=== PATIENT | female | born 1995 | race Caucasian/White ===

== ENCOUNTER 2016-05-01 10:28 | Emergency (ER) | payer BC, MEDICAID ==
[2016-05-01 11:26] VITALS: BP 140/74
--- NOTE | 2016-05-01 14:04 | RAD ---
Indication: Fall, left shoulder pain. 3 views of left shoulder demonstrates mild AC joint separation. No fracture is noted. IMPRESSION: AC joint separation without fracture.
--- NOTE | 2016-05-01 14:05 | RAD ---
Indication: Tenderness at the coccyx. 2 views of the sacrum and coccyx demonstrates no fracture. Sacral foramina are patent undisplaced. IMPRESSION: No fracture of the sacrum or coccyx is noted.
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
== END 2016-05-01 14:50 | disposition home or self-care (01) ==
LOC: UCEAST 10:28
DX: S43.102A Unspecified dislocation of left acromioclavicular joint, initial encounter (principal); S06.0X0A Concussion without loss of consciousness, initial encounter; S40.012A Contusion of left shoulder, initial encounter; W51.XXXA Accidental striking against or bumped into by another person, initial encounter; Y93.9 Activity, unspecified; Y92.9 Unspecified place or not applicable; M53.3 Sacrococcygeal disorders, not elsewhere classified; Z88.1 Allergy status to other antibiotic agents; K82.9 Disease of gallbladder, unspecified
CPT/HCPCS: 72220; 99213; G0463

== ENCOUNTER 2016-12-02 19:45 | Emergency (ER) | payer BC, MEDICAID ==
[2016-12-02 20:07] VITALS: BP 121/70
[2016-12-02] MEDS ORDERED: DOXYcycline CAP(*) 100 MG PO ONE (20:44)
--- NOTE | 2016-12-02 21:00 | UC ---
Bite Injury/Animal HPI - HPI Summary HPI Summary: Patient presents s/p tike bite, she states she believes it was on her less than 24 hours, she removed it and has it with her, it was not engorged. She reports a localized small red area where it was. She denies any fever, chills, joint pain or significant fatigue. - History of Current Complaint Chief Complaint: UCSkin Stated Complaint: TICK BITE Time Seen by Provider: 12/02/16 20:23 Hx Obtained From: Patient Hx Last Menstrual Period: inplanon ?: No Severity Currently: Mild Severity Initially: Mild Onset/Duration: Gradual Onset, Lasting Hours Has Animal Been Immunized?: No Character: Puncture Aggravating Factor(s): Other - palpation Alleviating Factor(s): Nothing Associated Signs And Symptoms: Positive: Negative Animal Available for Observation: Yes Animal Control Notified: No - Risk Factors Infection/Sepsis Risk Factors: Negative - Allergies/Home Medications Allergies/Adverse Reactions: Allergies Allergy/AdvReac Type Severity Reaction Status Date / Time Amoxicillin Allergy Hives Verified 05/16/16 09:40 Home Medications: Home Medications Dicyclomine CAP* [Bentyl CAP*] 10 mg PO TID PRN 12/02/16 [History Confirmed ] Lactobacillus [Probiotic] 1 cap PO 12/02/16 [History] PMH/Surg Hx/FS Hx/Imm Hx Previously Healthy: Yes - Surgical History Surgical History: Yes Surgery Procedure, Year, and Place: ear tube at age 11/10; CHOLECYSTECTOMY 2016 - Family History Known Family History: Positive: Hypertension, Diabetes, Other - gall stones - Social History Occupation: Employed Full-time Lives: Alone Alcohol Use: None Substance Use Type: None Smoking Status (MU): Never Smoked Tobacco Have You Smoked in the Last Year: No - Immunization History Most Recent Influenza Vaccination: 11/26/15 Most Recent Tetanus Shot: 10/30/15 Most Recent Pneumonia Vaccination: never Review of Systems Constitutional: Negative Skin: Negative - right lateral knee 1 cm circular pink ring where the tick was no erythema migrans noted., Other Eyes: Negative ENT: Negative Respiratory: Negative Cardiovascular: Negative Gastrointestinal: Negative Genitourinary: Negative Motor: Negative Neurovascular: Negative Musculoskeletal: Negative Neurological: Negative Psychological: Negative All Other Systems Reviewed And Are Negative: Yes Physical Exam Triage Information Reviewed: Yes Appearance: Well-Appearing Vital Signs: Initial Vital Signs Temp 97.1 F 12/02/16 20:03 Pulse 90 12/02/16 20:03 Resp 18 12/02/16 20:03 BP 121/70 12/02/16 20:03 Pulse Ox 100 12/02/16 20:03 Vital Signs Reviewed: Yes Eye Exam: Normal ENT Exam: Normal Neck exam: Normal Respiratory Exam: Normal Cardiovascular Exam: Normal Abdominal Exam: Normal Musculoskeletal Exam: Normal Skin Exam: Other - right lateral knee, 1 cm circular pink area with light brown puncture site at center. tick inspected no engorged. Bite Injury Course/Dx - Course Course Of Treatment: Patient was treated with doxycycline 200 mg once. I did recommend if she has concerns to have lyme titer in 14-21 days. At the time of discharge she was hemodynamically stable with normal vital signs. - Differential Dx/Diagnosis Differential Diagnosis/HQI/PQRI: Other - tick bite Provider Diagnoses: tick bite Discharge - Discharge Plan Condition: Stable Disposition: HOME Patient Education Materials: Tick Bite (ED) Referrals: No Primary Care Phys,NOPCP [Primary Care Provider] - Additional Instructions: Patient has a tick bite, she believes it was on her less than 72 hours, she has it with her it is no engorged. She does not have erythma migrans. I did treat her prophylaxis with doxycycline. The patient declined lyme titer tonight as she would be reactive as it has only been a few hours, she will follow up in 14-21 days for lyme testing.
== END 2016-12-02 20:56 | disposition home or self-care (01) ==
LOC: UCEAST 19:45
DX: S80.261A Insect bite (nonvenomous), right knee, initial encounter (principal); Z88.1 Allergy status to other antibiotic agents; W57.XXXA Bitten or stung by nonvenomous insect and other nonvenomous arthropods, initial encounter; Y92.9 Unspecified place or not applicable
CPT/HCPCS: 99212; A9270-GY; G0463

== ENCOUNTER 2017-01-22 11:30 | Emergency (ER) | payer BC, MEDICAID ==
[2017-01-22 11:52] VITALS: BP 135/71
--- NOTE | 2017-01-22 13:34 | UC ---
Throat Pain/Nasal Abhinav HPI - HPI Summary HPI Summary: TWO DAYS OF EAR PAIN, HEADACHE, CONGESTION, SORE THROAT, FEVER. - History of Current Complaint Chief Complaint: UCGeneralIllness Stated Complaint: FLU SYMPTOMS Time Seen by Provider: 01/22/17 12:03 Hx Obtained From: Patient Hx Last Menstrual Period: a few weeks ago Onset/Duration: Lasting Days Severity: Moderate Pain Intensity: 5 Pain Scale Used: 0-10 Numeric Associated Signs & Symptoms: Positive: Hoarseness, Sinus Discomfort, Nasal Discharge, Fever - Epiglottits Risk Factors Epiglottis Risk Factors: Negative - Allergies/Home Medications Allergies/Adverse Reactions: Allergies Allergy/AdvReac Type Severity Reaction Status Date / Time Amoxicillin Allergy Hives Verified 01/22/17 11:53 Home Medications: Home Medications Acetaminophen TAB* [Tylenol TAB*] 1,000 mg PO ONCE PRN 01/22/17 [History Confirmed 01/22/17] Ondansetron ODT TAB* [Zofran 4 MG Odt TAB*] 4 mg PO ONCE PRN 01/22/17 [History Confirmed 01/22/17] PMH/Surg Hx/FS Hx/Imm Hx Previously Healthy: Yes - Surgical History Surgical History: Yes Surgery Procedure, Year, and Place: ear tube at age 9; CHOLECYSTECTOMY 2016 - Family History Known Family History: Positive: Hypertension, Diabetes, Other - gall stones - Social History Occupation: Employed Full-time Lives: With Family Alcohol Use: Rare Substance Use Type: None Smoking Status (MU): Never Smoked Tobacco Have You Smoked in the Last Year: No - Immunization History Most Recent Influenza Vaccination: 11/26/15 Most Recent Tetanus Shot: 10/30/15 Most Recent Pneumonia Vaccination: never Review of Systems Constitutional: Fever Skin: Negative Eyes: Negative ENT: Ear Ache, Sinus Congestion, Sinus Pain/Tenderness Respiratory: Negative Cardiovascular: Negative Gastrointestinal: Negative Genitourinary: Negative Motor: Negative Neurovascular: Negative Musculoskeletal: Negative Neurological: Negative Psychological: Negative Is Patient Immunocompromised?: No All Other Systems Reviewed And Are Negative: Yes Physical Exam Triage Information Reviewed: Yes Appearance: Well-Appearing, No Pain Distress, Well-Nourished Vital Signs: Initial Vital Signs Temp 97 F 01/22/17 11:46 Pulse 112 01/22/17 11:46 Resp 18 01/22/17 11:46 BP 135/71 01/22/17 11:46 Pulse Ox 99 01/22/17 11:46 Vital Signs Reviewed: Yes Eye Exam: Normal ENT: Positive: Pharyngeal erythema, TM bulging, TM dull Dental Exam: Normal Neck exam: Normal Neck: Positive: Supple, Nontender, No Lymphadenopathy Respiratory Exam: Normal Respiratory: Positive: Chest non-tender, Lungs clear, Normal breath sounds, No respiratory distress, No accessory muscle use Cardiovascular Exam: Normal Cardiovascular: Positive: RRR, No Murmur, Pulses Normal, Brisk Capillary Refill Abdominal Exam: Normal Abdomen Description: Positive: Nontender, No Organomegaly Musculoskeletal Exam: Normal Neurological Exam: Normal Psychological Exam: Normal Skin Exam: Normal Throat Pain/Nasal Course/Dx - Differential Dx/Diagnosis Provider Diagnoses: SINUSITIS; PHARYNGITIS Discharge - Discharge Plan Condition: Stable Disposition: HOME Prescriptions: DOXYcycline CAP(*) [DOXYcycline 100MG CAP(*)] 100 mg PO BID #20 cap Patient Education Materials: Sinusitis (ED) Referrals: Isaac Horan CAFE COOK [Primary Care Provider] -
== END 2017-01-22 12:45 | disposition home or self-care (01) ==
LOC: UCEAST 11:30
DX: J32.9 Chronic sinusitis, unspecified (principal); J02.9 Acute pharyngitis, unspecified
CPT/HCPCS: 99212; G0463

== ENCOUNTER 2017-08-15 07:17 | Emergency (ER) | payer BC, MEDICAID ==
[2017-08-15 07:33] VITALS: BP 128/80
--- NOTE | 2017-08-15 08:30 | UC ---
Ok Ramos Rebecca, scribed for Anayeli Baxter MD on 08/15/17 at 0757 . General HPI - HPI Summary HPI Summary: Pt is a 22 y/o F who presents to [facility] c/o throat pain since yesterday morning. On triage, pain was moderate ranked 7/10 for which she tried taking Ibuprofen though it was difficult to swallow, and she has not taken anything else. Additionally c/o bilateral ear pain and chills. Denies N/V. Allergy to Amoxicillin caused hives as a child and she has no other known drug allergies. No chance of . - History of Current Complaint Chief Complaint: UCGeneralIllness Stated Complaint: THROAT PAIN Time Seen by Provider: 08/15/17 07:37 Hx Obtained From: Patient Hx Last Menstrual Period: nexplanon implant Onset/Duration: Lasting Days - Since yesterday, Still Present Current Severity: Moderate Pain Intensity: 7 Pain Location at: Throat Character: Ache Aggravating: Swallowing Alleviating: Nothing Associated Signs & Symptoms: Positive: Other - Ear pain, chills. Negative: Nausea, Vomiting - Allergy/Home Medications Allergies/Adverse Reactions: Allergies Allergy/AdvReac Type Severity Reaction Status Date / Time amoxicillin Allergy Hives Verified 08/15/17 07:24 Home Medications: Home Medications Etonogestrel [Nexplanon] 68 mg IMPLANT 08/15/17 [History] PMH/Surg Hx/FS Hx/Imm Hx - Additional Past Medical History Additional PMH: NEGATIVE PMHx: DM, HTN, COPD Respiratory History: Asthma - As a child GI/ History: Other Other GI/ History: IBS - Surgical History Surgical History: Yes Surgery Procedure, Year, and Place: ear tube at age 11/10; CHOLECYSTECTOMY 2016 - Family History Known Family History: Positive: Hypertension, Diabetes, Other - gall stones - Social History Occupation: Employed Full-time - Day care Lives: With Family Alcohol Use: Rare Substance Use Type: None Smoking Status (MU): Never Smoked Tobacco Have You Smoked in the Last Year: No - Immunization History Most Recent Influenza Vaccination: 11/26/15 Most Recent Tetanus Shot: 10/30/15 Most Recent Pneumonia Vaccination: never Review of Systems Constitutional: Chills Skin: Negative Eyes: Negative ENT: Sore Throat, Ear Ache - Bilateral ear pain Respiratory: Negative Cardiovascular: Negative Gastrointestinal: Negative Genitourinary: Negative Motor: Negative Neurovascular: Negative Musculoskeletal: Negative Neurological: Negative Psychological: Negative All Other Systems Reviewed And Are Negative: Yes - Comments Additional Review of Systems Comments: NEGATIVE: Nausea, vomiting Physical Exam Vital Signs: Initial Vital Signs Temp 97.9 F 08/15/17 07:27 Pulse 100 08/15/17 07:27 Resp 16 08/15/17 07:27 BP 128/80 08/15/17 07:27 Pulse Ox 97 08/15/17 07:27 Course/Dx - Course Course Of Treatment: Pt medications reviewed this visit. Discharge - Sign-Out/Discharge Documenting (check all that apply): Discharge/Admit/Transfer - Discharge - Discharge Plan Condition: Stable Disposition: HOME Prescriptions: Acetaminophen ADULT LIQ* [Tylenol ADULT LIQ*] 650 mg PO Q6H PRN #10 udc PRN Reason: pain or fever Cefdinir 250mg/5 ml* [Omnicef 250 mg/5 ml*] 300 mg PO BID #1 btl predniSONE [Deltasone 20 MG TAB] 40 mg PO DAILY #10 tablet Patient Education Materials: Strep Throat (ED) Forms: *Work Release Referrals: Isaac Horan, [employer]PARTMENT SUPERVISOR [Primary Care Provider] - Additional Instructions: - Okay to alternate ibuprofen (Advil, Motrin) 600mg and Tylenol 650mg every 3 hours for pain. Take with food. Do NOT take for more than 4-5 days - Okay to gargle and spit every 4 hours as needed for pain - Take antibiotics as prescribed until gone - Take prednisone as prescribed until gone - Stay well hydrated - frequent sips of cold fluids will be soothing to your throat (popsicles, jello, ice cream, ice water). Avoid excess caffeine until your symptoms have resolved. - Do not share eating, drinking utensils. Throw out your toothbrush when your symptoms resolved -Throat infections are spread by oral secretions - do not share eating or drinking utensils until you symptoms are resolved. Clean items that may get your secretions such as cell phones, ipads, computer mouse, television remotes - Your throat sample has been sent for additional testing. These results will take 1-2 days to come back. If you need antibiotics, we will contact you. You may contact us for your test results on Monday ([phone]) - Contact your doctor to arrange a follow-up appointment as needed - Billing Disposition and Condition Condition: STABLE Disposition: Home The documentation as recorded by the Ok watkins Rebecca accurately reflects the service I personally performed and the decisions made by , Anayeli Baxter MD.
== END 2017-08-15 08:30 | disposition home or self-care (01) ==
LOC: UCEAST 07:17
DX: J02.0 Streptococcal pharyngitis (principal); H92.03 Otalgia, bilateral; J45.909 Unspecified asthma, uncomplicated; K58.9 Irritable bowel syndrome, unspecified; Z88.0 Allergy status to penicillin; Z82.49 Family history of ischemic heart disease and other diseases of the circulatory system; Z83.3 Family history of diabetes mellitus
CPT/HCPCS: 87651; 99212; G0463

== ENCOUNTER 2017-10-05 19:24 | Emergency (ER) | payer BC, MEDICAID ==
[2017-10-05 19:40] VITALS: BP 144/78
--- NOTE | 2017-10-05 19:54 | UC ---
Throat Pain/Nasal Abhinav HPI - HPI Summary HPI Summary: sore throat for 1 week --felt like when she had strep 1 month ago (treated with Zithromax) also has right ear ache and nasal congestion - History of Current Complaint Chief Complaint: UCGeneralIllness Stated Complaint: EAR ACHE AND SORE THROAT Time Seen by Provider: 10/05/17 19:26 Hx Obtained From: Patient Hx Last Menstrual Period: nexplanon ?: No Onset/Duration: Sudden Onset, Lasting Weeks - 1 Pain Intensity: 5 Pain Scale Used: 0-10 Numeric Cough: None - Allergies/Home Medications Allergies/Adverse Reactions: Allergies Allergy/AdvReac Type Severity Reaction Status Date / Time amoxicillin Allergy Hives Verified 08/15/17 07:24 PMH/Surg Hx/FS Hx/Imm Hx Previously Healthy: Yes - Surgical History Surgical History: Yes Surgery Procedure, Year, and Place: ear tube at age 11/10; CHOLECYSTECTOMY 2015 - Family History Known Family History: Positive: Hypertension, Diabetes, Other - gall stones - Social History Occupation: Employed Full-time Lives: With Family Alcohol Use: Rare Substance Use Type: None Smoking Status (MU): Never Smoked Tobacco Have You Smoked in the Last Year: No - Immunization History Most Recent Influenza Vaccination: 11/26/15 Most Recent Tetanus Shot: 10/30/15 Most Recent Pneumonia Vaccination: never Review of Systems Constitutional: Negative Skin: Negative Eyes: Negative ENT: Sore Throat, Ear Ache - right, Sinus Congestion Respiratory: Negative Cardiovascular: Negative Gastrointestinal: Negative Genitourinary: Negative Motor: Negative Neurovascular: Negative Musculoskeletal: Negative Neurological: Negative Psychological: Negative Is Patient Immunocompromised?: No All Other Systems Reviewed And Are Negative: Yes Physical Exam Triage Information Reviewed: Yes Appearance: Well-Appearing, No Pain Distress, Well-Nourished Vital Signs: Initial Vital Signs Temp 97.7 F 10/05/17 19:33 Pulse 82 10/05/17 19:33 Resp 16 10/05/17 19:33 BP 144/78 10/05/17 19:33 Pulse Ox 99 10/05/17 19:33 Vital Signs Reviewed: Yes Eye Exam: Normal Eyes: Positive: Conjunctiva Clear ENT Exam: Normal ENT: Positive: Normal ENT inspection, Hearing grossly normal, Pharyngeal erythema, TMs normal, Tonsillar swelling, Tonsillar exudate, Uvula midline. Negative: Nasal congestion, Trismus, Muffled voice, Hoarse voice, Dental tenderness Dental Exam: Normal Neck exam: Normal Neck: Positive: Supple, Nontender, No Lymphadenopathy Respiratory Exam: Normal Respiratory: Positive: Chest non-tender, Lungs clear, Normal breath sounds, No respiratory distress, No accessory muscle use Cardiovascular Exam: Normal Cardiovascular: Positive: RRR, No Murmur, Pulses Normal, Brisk Capillary Refill Musculoskeletal Exam: Normal Musculoskeletal: Positive: Strength Intact, ROM Intact, No Edema Neurological Exam: Normal Neurological: Positive: Alert, Muscle Tone Normal Psychological Exam: Normal Skin Exam: Normal Diagnostics - Laboratory Diagnostic Studies Completed/Ordered: rst (-) Throat Pain/Nasal Course/Dx - Course Assessment/Plan: increase fluids, tylenol/ibuprofen/ zyrtec sudafed follow blood pressure with pcp - Differential Dx/Diagnosis Provider Diagnoses: elevated bp with dx of hypertension, viral pharyngitis Discharge - Sign-Out/Discharge Documenting (check all that apply): Patient Departure - Discharge Plan Condition: Stable Disposition: HOME Patient Education Materials: Earache (ED), Viral Syndrome (ED), Hypertension ( ED) Referrals: Isaac Horan NP [Primary Care Provider] - 1 Week - Billing Disposition and Condition Condition: STABLE Disposition: Home
== END 2017-10-05 20:15 | disposition home or self-care (01) ==
LOC: UCEAST 19:24
DX: J02.8 Acute pharyngitis due to other specified organisms (principal); H92.01 Otalgia, right ear; R09.81 Nasal congestion; R03.0 Elevated blood-pressure reading, without diagnosis of hypertension; Z88.0 Allergy status to penicillin; Z82.49 Family history of ischemic heart disease and other diseases of the circulatory system; Z83.3 Family history of diabetes mellitus; Z83.79 Family history of other diseases of the digestive system
CPT/HCPCS: 87651; 99211; G0463

== ENCOUNTER 2018-07-10 11:23 | Emergency (ER) | payer BC, MEDICAID ==
--- OUTSIDE RECORDS SUMMARY | 2018-07-10 11:38 | XMS REPORT | Continuity of Care Document ---
:1995 External Reference #:[id number] Author Name John James MD Address [address] [place] [address] Care Team Providers Name Role Phone Aung CHRIS, Isaac Primary Care Physician Unavailable Payers Date Identification Numbers Payment Provider Subscriber Effective: Policy Number: [id number] [facility] Melisa Newman 2018 [place] PayID: [id number] [address] [address] [place] [address] Effective: 2018 Policy Number: [id number] Medicaid/I Melisa Newman Group Name: 1 2 Insurance Primary PayID: [id number] [address] [place] [address] Advance Directives Description No Information Available Problems Active Problems Provider Date Other specified disorders of Eustachian tube, John James MD Onset: 06/14 bilateral Chronic rhinitis John James MD Onset: 06/14/2018 Family History Date Family Member(s) Observation Comments Mother Thyroid Disease Paternal Grandfather Cancer Paternal Grandfather Heart Attack Social History Type Date Description Comments Sex Unknown 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 Cigarette Use Does not smoke cigarettes Cigars Does not smoke cigars Pipe Does not smoke a pipe Smokeless Tobacco Does not use smokeless tobacco Alcohol Rarely drinks alcohol Child Social Hx 6TH Grade Allergies, Adverse Reactions, Alerts Active Allergies Reaction Severity Comments Date Amoxicillin 10/23/2003 Medications Active Medications SIG Qnty Indications Ordering Provider Date No Active Medications Unknown 06/14/2018 History Medications Ciprodex 4 drops to 10ml 380.10 Jamie Pena 12/10/2004 - 0.3%;0.1 % affected ear MD Mike 06/14/2018 Suspension twice daily for 14 days Floxin 4 gtt to left 10units 380.10 Jamie Pena 11/11/2004 - 0.3% Solution ear twice a day MD Mike 12/10/2004 for 14 days Multivitamins W/ Unknown 09/01/2004 - Fluoride 06/14/2018 Chewtabs Immunizations Description No Information Available Vital Signs Date Vital Result Comment 06/14/2018 8:43am Weight 192.00 lb Weight 87.091 kg Height 63.5 inches 5'3.50" Height in cm's 161.3 cm BMI (Body Mass Index) 33.5 kg/m2 11/11/2004 3:12pm BP Systolic 129 mmHg BP Diastolic 65 mmHg Heart Rate 69 /min Respiratory Rate 16 /min Results Description No Information Available Procedures Date Code Description Status 06/14/2018 57441 Tympanometry Completed 06/14/2018 74139 Comprehensive Audiogram Completed 01/31/2005 53519 Interest Income Completed 01/12/2005 79419 Comprehensive Audiogram Completed 12/10/2004 66563 Binocular Microscopy Completed 11/19/2004 43420 Binocular Microscopy Completed 11/11/2004 36305 Binocular Microscopy Completed 03/04/2004 26846 Comprehensive Audiogram Completed 03/04/2004 10726 Pre- Or Post-Op Visit Completed 02/17/2004 97447 Tympanostomy W/Tube, Under General Anes. Completed 02/17/2004 29855 Tympanostomy W/Tube, Under General Anes. Completed 02/04/2004 14891 Tympanometry Completed 01/01/2004 31114 Tympanometry Completed 01/01/2004 90963 Comprehensive Audiogram Completed 10/23/2003 03848 Tympanometry Completed 10/23/2003 42066 Comprehensive Audiogram Completed Encounters Type Date Location Provider Dx Diagnosis Office Visit 06/14/2018 [place] John James J31.0 Chronic rhinitis 8:45a 02/20/07 H69.83 Other specified disorders of Eustachian tube, bilateral Office Visit 01/07/2005 [place],After Jamie Pena 380.10 Otitis Externa 3:15p 02/20/07 MD Mike Acute Office Visit 12/10/2004 [place] Jamie Pena 380.10 Otitis Externa 3:15p 02/20/07 MD Mike Acute Office Visit 11/19/2004 [place] Jamie Pena 380.10 Otitis Externa 3:45p 02/20/07 MD Mike Acute Office Visit 11/11/2004 [place] Jamie Pena 380.10 Otitis Externa 3:15p 02/20/07 MD Mike Acute Office Visit 09/02/2004 [place] Adam Hoffman 381.81 Dysfunction Of 5:00p 02/20/07 John Alejandre Eustachian Tube 478.1 Ulcer Of Nasal Septum Office Visit 02/04/2004 9:30a [place],After 02/20/07 Adam Hoffman 381.4 Otitis MediaHill M.D. 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 Perennial, Allergy 381.4 Otitis Media, Serous Not Specified as Acute Or Chronic Office Visit 10/23/2003 2:00p [place],After 02/20/07 Adam Hoffman 381.4 Otitis [facility] M.D. 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
[2018-07-10 12:19] LABS: ABS Monocytes 0.8 10^3/ul (0-0.8); ABS Neutrophils 4.4 10^3/ul (1.5-7.7); Eosinophil % 0.4 %; Hematocrit 47 % (35-47); Hemoglobin 15.5 g/dL (12.0-16.0); Lymphocyte % 15.9 %; Mean Corpuscular HGB Conc 33 g/dL (31-36); Mean Corpuscular Hemoglobin 29 pg (27-31); Mean Corpuscular Volume 87 fL (80-97); Mean Platelet Volume 8.4 fL (7.4-10.4); Nucleated Red Blood Cells % 0.2; Platelet Count 222 10^3/uL (150-450); Red Blood Count 5.32 10^6 /uL (3.70-4.87); Red Cell Distribution Width 14 % (10.5-15); White Blood Count 6.3 10^3/uL (3.5-10.8)
[2018-07-10 12:50] LABS: ALT 17 U/L (7-52); AST 14 U/L (13-39); Albumin 4.6 g/dL (3.2-5.2); Albumin/Globulin Ratio 1.4 (1-3); Alkaline Phosphatase 64 U/L (34-104); Anion Gap 7 mmol/L (2-11); BUN/Creatinine Ratio 15.3 (8-20); Blood Urea Nitrogen 9 mg/dL (6-24); C Reactive Protein 38.73 mg/L (<8.01); CO2 Carbon Dioxide 26 mmol/L (22-32); Calcium 9.7 mg/dL (8.6-10.3); Chloride 103 mmol/L (101-111); EGFR African American 150.3 (>60); EGFR Non-African American 124.2 (>60); Globulin 3.3 g/dL (2-4); Glucose 80 mg/dL (70-100); Potassium 3.8 mmol/L (3.5-5.0); Sodium 136 mmol/L (135-145); Total Protein 7.9 g/dL (6.4-8.9)
[2018-07-10 12:53] LABS: HCG Pregnancy < 0.60 mIU/mL
--- NOTE | 2018-07-10 12:56 | ED ---
Abdominal Pain/Female - HPI Summary HPI Summary: This patient is a 23 year old F presenting to [facility] accompanied by her mother with a chief complaint of suprapubic abdominal pain since last night 07/09/18. Patient reports the pain is dull and radiates to her back and also reports that whole body is weak. The patient rates the pain 4/10 in severity. She reports fever, diarrhea, and chills last night but denies any symptoms today other than the pain. The patient reports she had a gallbladder removal in 2015 and has a Hx of IBS. The patient has no LNMP due to her control. Symptoms are aggravated by nothing. Symptoms are alleviated by nothing. - History of Current Complaint Chief Complaint: EDAbdPain Stated Complaint: ABD PAIN PER PT Time Seen by Provider: 07/10/18 12:34 Hx Obtained From: Patient Hx Last Menstrual Period: unsure- has nexplanon Onset/Duration: Sudden Onset, Lasting Days - 1, Still Present Timing: Days - 1 Severity Initially: Moderate Severity Currently: Moderate Pain Intensity: 4 Pain Scale Used: 0-10 Numeric Location: Suprapubic Radiates: Yes Radiates to: Back Character: Dull Aggravating Factor(s): Nothing Alleviating Factor(s): Nothing Associated Signs and Symptoms: Positive: Fever, Diarrhea, Other: - Positive: chills, fatigue Allergies/Adverse Reactions: Allergies Allergy/AdvReac Type Severity Reaction Status Date / Time amoxicillin Allergy Hives Verified 07/10/18 12:33 PMH/Surg Hx/FS Hx/Imm Hx Previously Healthy: No Endocrine/Hematology History: Denies: Hx Diabetes, Hx Thyroid Disease Cardiovascular History: Denies: Hx Hypertension, Hx Pacemaker/ICD Respiratory History: Denies: Hx Chronic Obstructive Pulmonary Disease (COPD) Comment Only: Hx Asthma - states as a child GI History: Reports: Hx Gall Bladder Disease Denies: Hx Ulcer Sensory History: Reports: Hx Contacts or Glasses Denies: Hx Hearing Aid Opthamlomology History: Reports: Hx Contacts or Glasses Psychiatric History: Denies: Hx Panic Disorder - Surgical History Surgery Procedure, Year, and Place: ear tube at age 11/10; CHOLECYSTECTOMY 2016 Infectious Disease History: No Infectious Disease History: Denies: Hx Clostridium Difficile, Hx Hepatitis, Hx Human Immunodeficiency Virus (HIV), Hx of Known/Suspected MRSA, Hx Shingles, Hx Tuberculosis, Hx Known/ Suspected VRE, Hx Known/Suspected VRSA, History Other Infectious Disease, Traveled Outside the [place] in Last 30 Days - Family History Known Family History: Positive: Hypertension, Diabetes, Other - gall stones - Social History Alcohol Use: None Hx Substance Use: No Substance Use Type: Reports: None Hx Tobacco Use: No Smoking Status (MU): Never Smoked Tobacco Have You Smoked in the Last Year: No Review of Systems Positive: Fever, Chills, Fatigue Positive: Abdominal Pain - suprapubic, Diarrhea All Other Systems Reviewed And Are Negative: Yes Physical Exam - Summary Physical Exam Summary: VITAL SIGNS: Reviewed. GENERAL: Patient is a well-developed and nourished FEMALE who is lying comfortable in the stretcher. Patient is not in any acute respiratory distress. HEAD AND FACE: No signs of trauma. No ecchymosis, hematomas or skull depressions. No sinus tenderness. EYES: PERRLA, EOMI x 2, No injected conjunctiva, no nystagmus. EARS: Hearing grossly intact. Ear canals and tympanic membranes are within normal limits. MOUTH: Oropharynx within normal limits. NECK: Supple, trachea is midline, no adenopathy, no JVD, no carotid bruit, no c- spine tenderness, neck with full ROM. CHEST: Symmetric, no tenderness at palpation LUNGS: Clear to auscultation bilaterally. No wheezing or crackles. CVS: Regular rate and rhythm, S1 and S2 present, no murmurs or gallops appreciated. ABDOMEN: Soft, RLQ tenderness No signs of distention. No rebound no guarding, and no masses palpated. Bowel sounds are normal. EXTREMITIES: FROM in all major joints, no edema, no cyanosis or clubbing. NEURO: Alert and oriented x 3. No acute neurological deficits. Speech is normal and follows commands. SKIN: Dry and warm Triage Information Reviewed: Yes Vital Signs On Initial Exam: Initial Vitals Temp Pulse Resp BP Pulse Ox 98.0 F 90 18 143/92 98 07/10/18 11:26 07/10/18 11:26 07/10/18 11:26 07/10/18 11:26 07/10/18 11:26 Vital Signs Reviewed: Yes Diagnostics - Vital Signs Vital Signs Temp Pulse Resp BP Pulse Ox 07/10/18 11:26 98.0 F 90 18 143/92 98 - Laboratory Lab Results: Lab Results 07/10/18 07/10/18 Range/Units 12:07 12:07 WBC 6.3 (3.5-10.8) 10^3/uL RBC 5.32 H (3.70-4.87) 10^6 /uL Hgb 15.5 (12.0-16.0) g/dL Hct 47 (35-47) % MCV 87 (80-97) fL MCH 29 (27-31) pg MCHC 33 (31-36) g/dL RDW 14 (10.5-15) % Plt Count 222 (150-450) 10^3/uL MPV 8.4 (7.4-10.4) fL Neut % (Auto) 70.6 % Lymph % (Auto) 15.9 % Walker % (Auto) 12.6 % Eos % (Auto) 0.4 % Baso % (Auto) 0.5 % Absolute Neuts (auto) 4.4 (1.5-7.7) 10^3/ul Absolute Lymphs (auto) 1.0 (1.0-4.8) 10^3/ul Absolute Monos (auto) 0.8 (0-0.8) 10^3/ul Absolute Eos (auto) 0.0 (0-0.6) 10^3/ul Absolute Basos (auto) 0.0 (0-0.2) 10^3/ul Absolute Nucleated RBC 0.0 10^3/ul Nucleated RBC % 0.2 Lactic Acid 0.7 (0.5-2.0) mmol/L Result Diagrams: 07/10/18 12:07 07/10/18 12:07 Lab Statement: Any lab studies that have been ordered have been reviewed, and results considered in the medical decision making process. - CT CT A/P CT Interpretation Completed By: Radiologist Summary of CT Findings: Normal appendix. No definite obstructive uropathy is noted. 3 cm right ovarian cyst is noted. ED Physician has reviewed this report. Abdominal Pain Fem Course/Dx - Course Course Of Treatment: This patient is a 23 year old F presenting to [facility] accompanied by her mother with a chief complaint of suprapubic abdominal pain since last night 07/09/18. Patient reports the pain is dull and radiates to her back and also reports that whole body is weak. The patient rates the pain 4/10 in severity. She reports fever, diarrhea, and chills last night, but denies any symptoms today other than the pain. The patient reports she had a gallbladder removal in 2016 and has a Hx of IBS. The patient has no LNMP due to her control. Symptoms are aggravated by nothing. Symptoms are alleviated by nothing. Blood work without any significant abnormality except for CRP of 38.7 , lipase less than 10. Analysis is negative for UTI. Abdominopelvic CT impression: Normal appendix. No definite obstructive uropathy is noted. 3 cm right ovarian cyst is noted. I offered the patient and pelvic ultrasound which she declined, I offered her a pelvic exam and she also declined. Therefore, the patient will be given a prescription for Naprosyn and discharged home with follow-up with primary care physician. I discussed all the findings and test results with the patient. Patient was instructed to return to the emergency room immediately if any of the symptoms return worsens. Plan of care was discussed with the patient and understands and agrees. All questions were answered at patient satisfaction. There were no further complaints or concerns. Lung exam before discharge: CTA B/L. Good air exchange. No wheezing or crackles heard. CVS: S1 and S2 present. No murmurs appreciated. Patient is alert and oriented x 3. Patient is hemodynamically stable. Patient will be discharged home with follow up PCP in the next 2-3 days - Diagnoses Differential Diagnosis: Positive: Appendicitis, Constipation, Diverticulitis, , Urinary Tract Infection Provider Diagnoses: Ovarian cyst, Lower abdominal pain Discharge - Sign-Out/Discharge Documenting (check all that apply): Patient Departure - discharge Patient Received Moderate/Deep Sedation with Procedure: No - Discharge Plan Condition: Stable Disposition: HOME Prescriptions: Naproxen [Naproxen 500 mg tab] 500 mg PO BID PRN #20 tablet PRN Reason: Pain Patient Education Materials: Ovarian Cyst (ED), Abdominal Pain (ED) Referrals: Isaac Horan NP [Primary Care Provider] - Additional Instructions: FOLLOW UP WITH YOUR PRIMARY CARE PROVIDER WITHIN 3 DAYS. RETURN TO THE ED FOR ANY WORSENING OR NEW SYMPTOMS. - Billing Disposition and Condition Condition: STABLE Disposition: Home - Attestation Statements Document Initiated by Scribe: Yes Documenting Scribe: Yosvany Vidal and Justus Salgado Provider For Whom Scribe is Documenting (Include Credential): Destni Thurston MD Scribe Attestation: I, Yosvany Vidal and Justus Salgado, scribed for Destin Thurston MD on 07/12/18 at 1145. Scribe Documentation Reviewed: Yes Provider Attestation: The documentation as recorded by the june, Yosvany Vidal and Justus Salgado accurately reflects the service I personally performed and the decisions made by , Destin Thurston MD Status of Scribe Document: Viewed
[2018-07-10 13:01] LABS: Urine Appearance Cloudy; Urine Bacteria 1+ (Absent); Urine Bilirubin Negative (Negative); Urine Blood Negative (Negative); Urine Color Yellow; Urine Glucose Negative (Negative); Urine Ketones Negative (Negative); Urine Nitrite Negative (Negative); Urine Protein Negative (Negative); Urine Red Blood Cell Absent (Absent); Urine Specific Gravity 1.029 (1.010-1.030); Urine Squamous Epithelial Cell Present (Absent); Urine Urobilinogen Negative (Negative); Urine White Blood Cell Trace(0-5/hpf) (Absent)
[2018-07-10] MEDS ORDERED: Iohexol 300* (CONTRAST) 10 ML SDV IV ONE (14:16)
[2018-07-10 14:56] VITALS: BP 109/73
== END 2018-07-10 15:01 | disposition home or self-care (01) ==
LOC: ED 11:23
DX: N83.201 Unspecified ovarian cyst, right side (principal); R10.31 Right lower quadrant pain; R50.9 Fever, unspecified; R19.7 Diarrhea, unspecified; R53.83 Other fatigue; K58.9 Irritable bowel syndrome, unspecified; Z90.49 Acquired absence of other specified parts of digestive tract; Z88.0 Allergy status to penicillin
CPT/HCPCS: 36415; 74177; 80053; 81003; 81015; 83605; 83690; 84702; 85025; 86140; 87086; 99282; Q9967

== ENCOUNTER 2019-02-13 22:03 | Emergency (ER) | payer BC, MEDICAID ==
--- NOTE | 2019-02-13 22:41 | ED ---
Respiratory - HPI Summary HPI Summary: Patient complains of dry cough, runny nose, mild sore throat, sensation of fluid in the ears for a couple weeks. Denies fever, SERRANO, neck stiffness, CP, SOB , N/V/D, abdominal pain, change in urine, change in BM. Negative history is none. - History of Current Complaint Chief Complaint: EDUpperRespComplaint Stated Complaint: "COUGH PER PT" Time Seen by Provider: 02/13/19 22:39 Hx Obtained From: Patient Onset/Duration: Gradual Onset, Lasting Weeks Current Severity: None Pain Intensity: 0 Character: Cough (Nonproductive) Sputum Amount: None Aggravating Factor(s): Nothing Alleviating Factor(s): Nothing Associated Signs and Symptoms: Nasal Congestion - Allergy/Home Medications Allergies/Adverse Reactions: Allergies Allergy/AdvReac Type Severity Reaction Status Date / Time amoxicillin Allergy Hives Verified 07/10/18 12:33 PMH/Surg Hx/FS Hx/Imm Hx Endocrine/Hematology History: Denies: Hx Diabetes, Hx Thyroid Disease Cardiovascular History: Denies: Hx Hypertension, Hx Pacemaker/ICD Respiratory History: Denies: Hx Chronic Obstructive Pulmonary Disease (COPD) Comment Only: Hx Asthma - states as a child GI History: Reports: Hx Gall Bladder Disease Denies: Hx Ulcer History: Denies: Hx Renal Disease Sensory History: Reports: Hx Contacts or Glasses Denies: Hx Hearing Aid Opthamlomology History: Reports: Hx Contacts or Glasses EENT History: Denies: Hx Deafness Neurological History: Denies: Hx Dementia Psychiatric History: Denies: Hx Panic Disorder - Surgical History Surgery Procedure, Year, and Place: ear tube at age 11/10; CHOLECYSTECTOMY 2016 Infectious Disease History: No Infectious Disease History: Denies: Hx Clostridium Difficile, Hx Hepatitis, Hx Human Immunodeficiency Virus (HIV), Hx of Known/Suspected MRSA, Hx Shingles, Hx Tuberculosis, Hx Known/ Suspected VRE, Hx Known/Suspected VRSA, History Other Infectious Disease, Traveled Outside the [place] in Last 30 Days - Family History Known Family History: Positive: Hypertension, Diabetes, Other - gall stones - Social History Alcohol Use: None Hx Substance Use: No Substance Use Type: Reports: None Hx Tobacco Use: No Smoking Status (MU): Never Smoked Tobacco Have You Smoked in the Last Year: No Review of Systems Constitutional: Negative Eyes: Negative ENT: Negative Cardiovascular: Negative Positive: Cough Gastrointestinal: Negative Genitourinary: Negative Musculoskeletal: Negative Skin: Negative Neurological: Negative Psychological: Normal All Other Systems Reviewed And Are Negative: Yes Physical Exam Triage Information Reviewed: Yes Vital Signs On Initial Exam: Initial Vitals Temp Pulse Resp BP Pulse Ox 97.7 F 82 18 166/100 99 02/13/19 22:05 02/13/19 22:05 02/13/19 22:05 02/13/19 22:05 02/13/19 22:05 Vital Signs Reviewed: Yes Appearance: Positive: Well-Appearing Skin: Positive: Warm Head/Face: Positive: Normal Head/Face Inspection Eyes: Positive: Normal ENT: Positive: Normal ENT inspection Neck: Positive: Supple Respiratory/Lung Sounds: Positive: Clear to Auscultation Cardiovascular: Positive: Normal Abdomen Description: Positive: Nontender Musculoskeletal: Positive: Normal Neurological: Positive: Normal Psychiatric: Positive: Normal AVPU Assessment: Alert - [place] Coma Scale Best Eye Response: 4 - Spontaneous Best Motor Response: 6 - Obeys Commands Best Verbal Response: 5 - Oriented Coma Scale Total: 15 Procedures - Sedation Patient Received Moderate/Deep Sedation with Procedure: No Diagnostics - Vital Signs Vital Signs Temp Pulse Resp BP Pulse Ox 02/13/19 22:05 97.7 F 82 18 166/100 99 - Laboratory Lab Statement: Any lab studies that have been ordered have been reviewed, and results considered in the medical decision making process. Disposition - Course Course Of Treatment: Patient complains of dry cough, runny nose, mild sore throat, sensation of fluid in the ears for a couple weeks. Denies fever, SERRANO, neck stiffness, CP, SOB, N/V/D, abdominal pain, change in urine, change in BM. Negative history is none. Vital signs within normal limits. - Diagnoses Provider Diagnoses: Sinusitis Discharge ED - Sign-Out/Discharge Documenting (check all that apply): Patient Departure - Discharge Plan Condition: Stable Disposition: HOME Patient Education Materials: Sinusitis (ED) Referrals: Isaac Horan NP [Primary Care Provider] - Additional Instructions: Take azithromycin for respiratory infection. Take Tessalon for cough. Follow- up with primary care. Return to the ED for any new or worsening symptoms. - Billing Disposition and Condition Condition: STABLE Disposition: Home
[2019-02-13] MEDS ORDERED: Benzonatate CAP* 100 MG PO ONE ×2 (23:09→23:10)
[2019-02-13] MEDS ORDERED: Azithromycin TAB* 250 MG PO ONE ×2 (23:09→23:10)
[2019-02-14 00:22] VITALS: BP 129/70
[2019-02-14] MEDS ORDERED: Benzonatate CAP* 100 MG PO ONE (01:00)
== END 2019-02-14 00:21 | disposition home or self-care (01) ==
LOC: ED 22:03
DX: J32.9 Chronic sinusitis, unspecified (principal); Z88.0 Allergy status to penicillin; Z90.49 Acquired absence of other specified parts of digestive tract
CPT/HCPCS: 99282; A9270-GY

== ENCOUNTER 2021-02-24 16:42 | Inpatient (IN) ==
[2021-02-24] MEDS ORDERED: Lactated Ringers 1000 ml BAG 1,000 ML IV ONE (18:28)
[2021-02-24] MEDS ORDERED: Buffered Lidocaine 1% SYRIN 1 ml INTRADERM ONE (18:28)
[2021-02-24] MEDS ORDERED: Lactated Ringers 1000 ml BAG 1,000 ML IV SCH (19:00)
[2021-02-24 20:03] LABS: Urine Benzodiazepine Screen None Detected (None Detect); Urine Cannabinoids Screen None Detected (None Detect); Urine Opiates Screen None Detected (None Detect)
[2021-02-25 03:24] LABS: ABS Lymphocytes 1.5 10^3/ul (1.0-4.8); ABS Monocytes 0.6 10^3/ul (0-0.8); ABS Neutrophils 4.6 10^3/ul (1.5-7.7); Eosinophil % 0.2 %; Hematocrit 30 % (35-47); Hemoglobin 9.6 g/dL (12.0-16.0); Lymphocyte % 22.7 %; Mean Corpuscular HGB Conc 32 g/dL (31-36); Mean Corpuscular Hemoglobin 25 pg (27-31); Mean Corpuscular Volume 78 fL (80-97); Mean Platelet Volume 9.5 fL (7.4-10.4); Nucleated Red Blood Cells % 0.1; Platelet Count 185 10^3/uL (150-450); Red Blood Count 3.81 10^6 /uL (3.70-4.87); Red Cell Distribution Width 17 % (10-15); White Blood Count 6.7 10^3/uL (3.5-10.8)
[2021-02-25 03:39] LABS: Albumin 3.1 g/dL (3.2-5.2); Albumin/Globulin Ratio 1.1 (1-3); Calcium 8.5 mg/dL (8.6-10.3); Globulin 2.7 g/dL (2-4); Potassium 3.8 mmol/L (3.5-5.0); Total Bilirubin 0.5 mg/dL (0.2-1.0); Total Protein 5.8 g/dL (6.4-8.9); Uric Acid 4.5 mg/dL (2.3-6.6); eGFR CKD-EPI 138.2 (>60)
[2021-02-25] MEDS ORDERED: Oxytocin in LR 20 UNITS/1,000 ML BAG IVPB ONE (10:34)
[2021-02-25] MEDS ORDERED: fentaNYL 100 mcg/2 ml 50 MCG/ML VIAL ONE (10:44)
[2021-02-25] MEDS ORDERED: Oxytocin in LR 20 UNITS/1,000 ML BAG IVPB SCH (10:50)
[2021-02-25] MEDS ORDERED: Witch Hazel PAD JAR TOPICAL PRN (11:09)
[2021-02-25] MEDS: ceFAZolin 2 GM in NS PREMIX 2 GM/100 ML BAG IVPB ONE ×2 (11:41)
[2021-02-25] MEDS ORDERED: Lactated Ringers 1000 ml BAG 1,000 ML IV SCH (12:00)
[2021-02-25] MEDS: Dibucaine 1% OINT 28.35 GM TUBE PR PRN (14:35)
[2021-02-25] MEDS ORDERED: Lidocaine 1% VIAL 10 MG/ML VIAL ONE (16:10)
[2021-02-25 19:52] LABS: ABS Lymphocytes 1.4 10^3/ul (1.0-4.8); ABS Monocytes 0.9 10^3/ul (0-0.8); ABS Neutrophils 12.7 10^3/ul (1.5-7.7); Hematocrit 27 % (35-47); Hemoglobin 8.7 g/dL (12.0-16.0); Lymphocyte % 9.5 %; Mean Corpuscular HGB Conc 33 g/dL (31-36); Mean Corpuscular Hemoglobin 25 pg (27-31); Mean Corpuscular Volume 76 fL (80-97); Mean Platelet Volume 9.6 fL (7.4-10.4); Nucleated Red Blood Cells % 0.1; Platelet Count 194 10^3/uL (150-450); Red Blood Count 3.53 10^6 /uL (3.70-4.87); Red Cell Distribution Width 17 % (10-15); White Blood Count 15.1 10^3/uL (3.5-10.8)
[2021-02-26 06:19] LABS: ABS Lymphocytes 1.6 10^3/ul (1.0-4.8); ABS Monocytes 0.7 10^3/ul (0-0.8); ABS Neutrophils 9.5 10^3/ul (1.5-7.7); Eosinophil % 0.2 %; Hematocrit 25 % (35-47); Lymphocyte % 13.7 %; Mean Corpuscular HGB Conc 32 g/dL (31-36); Mean Corpuscular Hemoglobin 25 pg (27-31); Mean Corpuscular Volume 77 fL (80-97); Mean Platelet Volume 9.2 fL (7.4-10.4); Nucleated Red Blood Cells % 0.1; Platelet Count 165 10^3/uL (150-450); Red Blood Count 3.23 10^6 /uL (3.70-4.87); Red Cell Distribution Width 17 % (10-15); White Blood Count 11.9 10^3/uL (3.5-10.8)
[2021-02-27 08:12] VITALS: BP 134/75
[2021-02-27 09:10] LABS: ABS Eosinophils 0.1 10^3/ul (0-0.6); ABS Lymphocytes 1.4 10^3/ul (1.0-4.8); ABS Monocytes 0.6 10^3/ul (0-0.8); ABS Neutrophils 7.6 10^3/ul (1.5-7.7); Eosinophil % 0.7 %; Hematocrit 26 % (35-47); Hemoglobin 8.4 g/dL (12.0-16.0); Lymphocyte % 14.2 %; Mean Corpuscular HGB Conc 32 g/dL (31-36); Mean Corpuscular Hemoglobin 25 pg (27-31); Mean Corpuscular Volume 79 fL (80-97); Mean Platelet Volume 9.2 fL (7.4-10.4); Platelet Count 205 10^3/uL (150-450); Red Blood Count 3.37 10^6 /uL (3.70-4.87); Red Cell Distribution Width 17 % (10-15); White Blood Count 9.7 10^3/uL (3.5-10.8)
[2021-02-27] MEDS: Dibucaine 1% OINT 28.35 GM TUBE PR PRN (11:21)
== END 2021-02-27 14:00 | disposition home or self-care (01) | DRG 541 ==
LOC: MCHOBOUT 16:42 → MCHOB 18:01
PROVIDERS: ADMIT Midwife; ATTEND Midwife